=== PATIENT | male | born 1945 | race Caucasian/White ===

== ENCOUNTER 2020-04-12 19:01 | Inpatient (IN) | payer MEDICARE, OTHER ==
[~2020-04-12] VITALS: Ht 170.2 cm; Wt 78.7 kg
[2020-04-12 19:34] LABS: Basophils # (auto) 0 10 ^3/uL (0-0.2); Basophils % (auto) 0.5 % (0.0-2.0); Eosinophils # (auto) 0.1 10 ^3/uL (0-0.8); Eosinophils % (auto) 1.7 % (0.0-7.0); Hematocrit 43.7 % (41.0-53.0); Hemoglobin 15.1 g/dL (13.5-17.5); Lymphocytes % (auto) 29.4 % (10.0-50.0); Mean Corpuscular Hemoglobin 31.2 pg (28.0-32.0); Mean Corpuscular Hgb Conc. 34.5 g/dL (32.0-36.0); Mean Corpuscular Volume 90.3 fL (80.0-100.0); Monocytes # (auto) 0.9 10 ^3/uL (0-1.3); Monocytes % (auto) 12.6 % (0.0-12.0); Neutrophils # (auto) 3.8 10 ^3/uL (1.6-8.6); Neutrophils % (auto) 55.8 % (37.0-80.0); Nucleated Red Blood Cells % 0.1 %; Platelet Count (auto) 226 10^3/uL (140-450); Red Blood Cells 4.84 10^6/uL (4.5-5.90); Red Cell Distribution Width 14.2 % (11.8-14.3); White Blood Cell 6.9 10^3/uL (4.4-10.8)
[2020-04-12 19:48] LABS: Alanine Aminotransferase 33 U/L (16-61); Albumin 3.4 g/dL (3.4-5.0); Anion Gap 6 (5-15); Blood Urea Nitrogen 17 mg/dL (7-18); Calcium 8.8 mg/dL (8.5-10.1); Carbon Dioxide 26 mmol/L (21-32); Chloride 108 mmol/L (98-107); Glucose 108 mg/dL (74-106); Potassium 3.9 mmol/L (3.5-5.1); Sodium 140 mmol/L (136-145)
[2020-04-12 19:52] LABS: Alkaline Phosphatase 79 U/L (45-117); Aspartate Aminotransferase 19 U/L (15-37); BUN/Creatinine Ratio 16.5; Bilirubin, Total 0.4 mg/dL (0.2-1.0); GFR African American 91 mL/min; GFR Non-African American 75 mL/min; Total Protein 8.1 g/dL (6.4-8.2)
[2020-04-12 19:55] LABS: INR 1.02 (0.9-1.15); Partial Thromboplastin Time 29.1 sec (23.0-31.2)
[2020-04-13] MEDS ORDERED: NITROGLYCERIN 0.4 MG SL TAB SL PRN (00:15)
[2020-04-13] MEDS ORDERED: MORPHINE SULF INJ 2 MG/ML SYRINGE 1ML IV PRN (00:15)
[2020-04-13] MEDS ORDERED: TEMAZEPAM 15 MG CAP PO PRN (00:15)
[2020-04-13] MEDS ORDERED: ACETAMINOPHEN 325 MG TAB PO PRN (00:15)
[2020-04-13] MEDS ORDERED: ONDANSETRON HCL 4 MG/2 ML VIAL IV PRN (00:15)
[2020-04-13] MEDS ORDERED: LORazepam 2MG/ML-1ML VIAL IV PRN (09:15)
[2020-04-13] MEDS ORDERED: ASPirin 81 mg TAB PO SCH (10:00)
[2020-04-13] MEDS: ASPirin 81 mg TAB PO SCH ×2 (10:00→10:25)
[2020-04-13] MEDS: LISINOPRIL 10 MG TAB PO SCH ×2 (10:00→11:10)
[2020-04-13 10:08] LABS: Cholesterol 144 mg/dL (< 200)
[2020-04-13 10:10] LABS: HDL Cholesterol 31 mg/dL (40-59); LDL Cholesterol 99 mg/dL (< 100); Triglycerides 129 mg/dL (< 150)
[2020-04-13] MEDS: ATORVASTATIN 20 MG TAB PO SCH ×2 (10:25→22:12)
[2020-04-13] MEDS: ENOXAPARIN SOD 40 MG/0.4 ML SYRINGE SC SCH (10:26)
[2020-04-13] MEDS: CLOPIDOGREL BISULFATE 75 MG TAB PO SCH (10:26)
[2020-04-13] MEDS: FAMOTIDINE 20 MG TAB PO SCH ×2 (10:26→22:13)
[2020-04-13 22:00] VITALS: BP 124/80
[2020-04-13] MEDS ORDERED: ATORVASTATIN 20 MG TAB PO SCH (22:00)
[2020-04-14] MEDS ORDERED: BENA10TA9 PO (02:50)
[2020-04-14] MEDS ORDERED: ASPI-543 PO (02:50)
[2020-04-14 05:00] VITALS: BP 141/91
[2020-04-14 06:01] LABS: Basophils # (auto) 0 10 ^3/uL (0-0.2); Basophils % (auto) 0.1 % (0.0-2.0); Eosinophils # (auto) 0.1 10 ^3/uL (0-0.8); Eosinophils % (auto) 1.8 % (0.0-7.0); Hematocrit 40.9 % (41.0-53.0); Hemoglobin 14.2 g/dL (13.5-17.5); Lymphocytes # (auto) 2.1 10 ^3/uL (0.4-5.4); Lymphocytes % (auto) 29.7 % (10.0-50.0); Mean Corpuscular Hemoglobin 31.6 pg (28.0-32.0); Mean Corpuscular Hgb Conc. 34.8 g/dL (32.0-36.0); Mean Corpuscular Volume 90.9 fL (80.0-100.0); Monocytes # (auto) 0.8 10 ^3/uL (0-1.3); Monocytes % (auto) 11.5 % (0.0-12.0); Neutrophils # (auto) 3.9 10 ^3/uL (1.6-8.6); Neutrophils % (auto) 56.9 % (37.0-80.0); Nucleated Red Blood Cells % 0.4 %; Platelet Count (auto) 223 10^3/uL (140-450); Red Cell Distribution Width 14.2 % (11.8-14.3); White Blood Cell 6.9 10^3/uL (4.4-10.8)
[2020-04-14 06:08] LABS: Calcium 8.3 mg/dL (8.5-10.1); Potassium 4.2 mmol/L (3.5-5.1)
[2020-04-14 06:10] LABS: BUN/Creatinine Ratio 18.8
[2020-04-14 08:00] VITALS: BP 124/68
[2020-04-14] MEDS: ASPirin 81 mg TAB PO SCH (09:30)
[2020-04-14] MEDS: FAMOTIDINE 20 MG TAB PO SCH (09:30)
[2020-04-14] MEDS: ENOXAPARIN SOD 40 MG/0.4 ML SYRINGE SC SCH (09:31)
[2020-04-14] MEDS: LISINOPRIL 10 MG TAB PO SCH (09:31)
[2020-04-14] MEDS: CLOPIDOGREL BISULFATE 75 MG TAB PO SCH (09:31)
[2020-04-14 15:08] VITALS: BP 127/70
== END 2020-04-14 16:20 | disposition home or self-care (01) | DRG 65 ==
LOC: ER 19:01 → TELE 19:02 → TELE-EAST 04-13 20:10 → DOU IN ADS 04-13 20:11
PROVIDERS: ADMIT Nurse Practitioner; ATTEND Internal Medicine
DX: I63.9 Cerebral infarction, unspecified (principal); G81.94 Hemiplegia, unspecified affecting left nondominant side; I10 Essential (primary) hypertension; F17.200 Nicotine dependence, unspecified, uncomplicated; Z20.822 Contact with and (suspected) exposure to COVID-19; R29.810 Facial weakness; R47.81 Slurred speech; Z79.82 Long term (current) use of aspirin; Z79.899 Other long term (current) drug therapy; Z86.73 Personal history of transient ischemic attack (TIA), and cerebral infarction without residual deficits; Z87.442 Personal history of urinary calculi; Z79.02 Long term (current) use of antithrombotics/antiplatelets; Z90.49 Acquired absence of other specified parts of digestive tract
CPT/HCPCS: 36415; 70450; 70551; 80048; 80053; 80061; 83735; 84484; 85025; 85610; 85730; 87426; 92610; 93005; 93306; 93886; G0378

== ENCOUNTER 2020-06-25 18:39 | Inpatient (IN) | payer OTHER, MEDICARE ==
[~2020-06-25] VITALS: Ht 170.2 cm; Wt 73.0 kg
[~2020-06-25 18:39] MED LIST: ASPI-543 PO; BENA10TA9 PO
[2020-06-25 20:42] LABS: Basophils # (auto) 0 10 ^3/uL (0-0.2); Basophils % (auto) 0.6 % (0.0-2.0); Eosinophils # (auto) 0 10 ^3/uL (0-0.8); Eosinophils % (auto) 0.7 % (0.0-7.0); Hematocrit 42.8 % (41.0-53.0); Hemoglobin 14.8 g/dL (13.5-17.5); Lymphocytes # (auto) 1.5 10 ^3/uL (0.4-5.4); Lymphocytes % (auto) 21.9 % (10.0-50.0); Mean Corpuscular Hemoglobin 31.4 pg (28.0-32.0); Mean Corpuscular Hgb Conc. 34.5 g/dL (32.0-36.0); Mean Corpuscular Volume 91.1 fL (80.0-100.0); Monocytes # (auto) 0.7 10 ^3/uL (0-1.3); Monocytes % (auto) 10.6 % (0.0-12.0); Neutrophils # (auto) 4.4 10 ^3/uL (1.6-8.6); Neutrophils % (auto) 66.2 % (37.0-80.0); Nucleated Red Blood Cells % 0.1 %; Platelet Count (auto) 175 10^3/uL (140-450); Red Cell Distribution Width 14.6 % (11.8-14.3); White Blood Cell 6.7 10^3/uL (4.4-10.8)
[2020-06-25 21:01] LABS: INR 1.04 (0.9-1.15); Potassium 3.9 mmol/L (3.5-5.1)
[2020-06-25 21:09] LABS: Albumin 3.3 g/dL (3.4-5.0); BUN/Creatinine Ratio 19.8; Bilirubin, Total 0.3 mg/dL (0.2-1.0); Calcium 8.6 mg/dL (8.5-10.1); Total Protein 7.3 g/dL (6.4-8.2)
[2020-06-25] MEDS ORDERED: ENOXAPARIN SOD 80 MG/0.8ML SYRINGE SC ONE (21:30)
[2020-06-25] MEDS ORDERED: HEPARIN DRIP/D5W 100UNITS/ML 250 ML IV SCH (22:00)
[2020-06-25] MEDS: SODIUM CHLOR 0.9% PF (SALINE LOCK) 10ML VIAL/SYR IV SCH (22:00)
[2020-06-25] MEDS ORDERED: HEPARIN SODIUM (PORCINE) 5000 UNITS/ML 1ML VIAL IV ONE (22:00)
[2020-06-25] MEDS ORDERED: NITROGLYCERIN 0.4 MG SL TAB SL PRN (22:15)
[2020-06-25] MEDS ORDERED: MORPHINE SULF INJ 2 MG/ML SYRINGE 1ML IV PRN (22:15)
[2020-06-25] MEDS ORDERED: NITROGLYCERIN 0.4MG/HR TOPICAL PATCH TD ONE (22:15)
[2020-06-25] MEDS ORDERED: ASPirin 81 mg TAB PO ONE (22:15)
[2020-06-25] MEDS: ATORVASTATIN 20 MG TAB PO SCH (22:40)
[2020-06-25 22:53] LABS: Magnesium 2.2 mg/dL (1.6-2.6)
[2020-06-26] VITALS (25 sets, daily range): BP systolic 92–118; BP diastolic 32–69
[2020-06-26] MEDS ORDERED: NITROGLYCERIN 50MG/250ML 250 ML IV SCH (02:15)
[2020-06-26] MEDS ORDERED: CHOL1CAP PO (04:31)
[2020-06-26] MEDS ORDERED: ACET1CAP14 PO (04:31)
[2020-06-26] MEDS ORDERED: BENA20TA14 PO (04:31)
[2020-06-26] MEDS: SODIUM CHLOR 0.9% PF (SALINE LOCK) 10ML VIAL/SYR IV SCH ×3 (06:00→21:23)
[2020-06-26 06:42] LABS: INR 1.09 (0.9-1.15); Partial Thromboplastin Time 53.5 sec (23.0-31.2)
[2020-06-26 07:21] LABS: Basophils # (auto) 0 10 ^3/uL (0-0.2); Basophils % (auto) 0.2 % (0.0-2.0); Eosinophils # (auto) 0.1 10 ^3/uL (0-0.8); Eosinophils % (auto) 1.1 % (0.0-7.0); Lymphocytes % (auto) 29.2 % (10.0-50.0); Mean Corpuscular Hemoglobin 31.2 pg (28.0-32.0); Mean Corpuscular Hgb Conc. 34.2 g/dL (32.0-36.0); Mean Corpuscular Volume 91.1 fL (80.0-100.0); Monocytes # (auto) 0.8 10 ^3/uL (0-1.3); Monocytes % (auto) 11.4 % (0.0-12.0); Neutrophils % (auto) 58.1 % (37.0-80.0); Nucleated Red Blood Cells % 0.1 %; Platelet Count (auto) 172 10^3/uL (140-450); Red Cell Distribution Width 14.2 % (11.8-14.3); White Blood Cell 6.9 10^3/uL (4.4-10.8)
[2020-06-26 07:29] LABS: Albumin 3.4 g/dL (3.4-5.0); Calcium 8.5 mg/dL (8.5-10.1); Potassium 4.4 mmol/L (3.5-5.1)
[2020-06-26] MEDS ORDERED: TICAGRELOR 90 MG TAB PO ONE (07:30)
[2020-06-26 07:32] LABS: Bilirubin, Total 0.6 mg/dL (0.2-1.0)
[2020-06-26] MEDS: FAMOTIDINE 20 MG TAB PO SCH (09:55)
[2020-06-26] MEDS: METOPROLOL TARTRATE 25 MG TAB PO SCH ×2 (09:56→21:24)
[2020-06-26] MEDS ORDERED: ASPirin 81 mg TAB PO SCH (10:00)
[2020-06-26] MEDS: TICAGRELOR 90 MG TAB PO SCH ×2 (10:00→21:36)
[2020-06-26 12:50] LABS: INR 1.1 (0.9-1.15); Partial Thromboplastin Time 54.7 sec (23.0-31.2)
[2020-06-26] MEDS ORDERED: IOHEXOL 350 MG/ML 100ML IJ ONE (14:52)
[2020-06-26] MEDS ORDERED: LIDOCAINE 2%HCL (LOCAL ANESTH.) INJ 20ML MDV ONE (15:09)
[2020-06-26] MEDS ORDERED: MIDAZOLAM HCL 1MG/1ML-2 ML VIAL ONE (15:19)
[2020-06-26] MEDS ORDERED: ANGIOMAX 250 MG VIAL IV ONE (15:19)
[2020-06-26] MEDS ORDERED: SODIUM CHL 0.9% 50 ML ONE (15:19)
[2020-06-26] MEDS ORDERED: fentaNYL CITRATE 100 MCG/2 ML VL ONE (15:19)
[2020-06-26] MEDS ORDERED: EPTIFIBATIDE INJ (2MG/ML) 10ML VIAL IV ONE (15:36)
[2020-06-26] MEDS ORDERED: HYDROcodone-ACET 5/325MG TAB PO PRN (16:30)
[2020-06-26] MEDS ORDERED: ACETAMINOPHEN 500 MG TAB PO PRN (16:30)
[2020-06-26] MEDS: ATORVASTATIN 20 MG TAB PO SCH (21:36)
[2020-06-27] VITALS (7 sets, daily range): BP systolic 96–120; BP diastolic 54–72
[2020-06-27] MEDS: SODIUM CHLOR 0.9% PF (SALINE LOCK) 10ML VIAL/SYR IV SCH (05:19)
[2020-06-27] MEDS: TICAGRELOR 90 MG TAB PO SCH (09:59)
[2020-06-27] MEDS: FAMOTIDINE 20 MG TAB PO SCH (09:59)
[2020-06-27] MEDS: METOPROLOL TARTRATE 25 MG TAB PO SCH (10:00)
[2020-06-27] MEDS ORDERED: ASPirin 81 mg TAB PO SCH (10:00)
[2020-06-27] MEDS ORDERED: METO25TA36 PO (10:14)
[2020-06-27] MEDS ORDERED: TICA90TA PO (10:14)
[2020-06-27] MEDS ORDERED: PANT40TA2 PO (10:14)
== END 2020-06-27 14:27 | disposition home or self-care (01) | DRG 246 ==
LOC: ER 18:39 → TELE 18:40 → DOU IN ICU 06-26 03:47
PROVIDERS: ADMIT Nurse Practitioner Acute Care; ATTEND Internal Medicine
PROC: 027034Z Dilation of Coronary Artery, One Artery with Drug-eluting Intraluminal Device, Percutaneous Approach (ICD-10-PCS; principal; 2020-06-26)
PROC: 4A023N7 Measurement of Cardiac Sampling and Pressure, Left Heart, Percutaneous Approach (ICD-10-PCS; 2020-06-26)
PROC: B2111ZZ Fluoroscopy of Multiple Coronary Arteries using Low Osmolar Contrast (ICD-10-PCS; 2020-06-26)
DX: I21.4 Non-ST elevation (NSTEMI) myocardial infarction (principal); I50.31 Acute diastolic (congestive) heart failure; E44.1 Mild protein-calorie malnutrition; E78.5 Hyperlipidemia, unspecified; I11.0 Hypertensive heart disease with heart failure; Z20.822 Contact with and (suspected) exposure to COVID-19; I25.2 Old myocardial infarction; Z82.49 Family history of ischemic heart disease and other diseases of the circulatory system; Z86.73 Personal history of transient ischemic attack (TIA), and cerebral infarction without residual deficits; Z87.442 Personal history of urinary calculi; Z86.16 Personal history of COVID-19; Z90.49 Acquired absence of other specified parts of digestive tract
CPT/HCPCS: 36415; 71045; 80053; 80061; 82962; 83735; 83880; 84484; 85025; 85379; 85610; 85730; 87081; 87426; 93005; 96365; 96375; 99291; G0378; J2250

== ENCOUNTER 2023-04-30 01:28 | Emergency (ER) | payer OTHER, MEDICARE ==
[~2023-04-30] VITALS: Ht 170.2 cm; Wt 71.4 kg
[~2023-04-30 01:28] MED LIST changes: +ACET1CAP14 PO; +BENA-36 PO; -BENA10TA9 PO; +CHOL1CAP PO; +METO25TA36 PO; +PANT40TA2 PO; +TICA90TA PO
[2023-04-30 03:37] VITALS: BP 159/97; PULSE 66; RESP 16; TEMP 97.4; O2SAT 100
[2023-04-30] MEDS: cefTRIAXone SOD 1,000 MG VL IM ONE (03:42)
[2023-04-30 04:37] LABS: Urine Bacteria NONE SEEN /hpf (None Seen); Urine Blood 2+ /uL (Negative); Urine Clarity Clear (Clear); Urine Color Colorless (Yellow); Urine Protein, UAD 1+ (Negative); Urine Specific Gravity 1.003 (1.001-1.035); Urine Urobilinogen Normal (Negative); Urine WBC 7 /hpf (0 - 3)
== END 2023-04-30 04:43 | disposition home or self-care (01) ==
LOC: ER 01:28
DX: R33.9 Retention of urine, unspecified (principal); N39.0 Urinary tract infection, site not specified; I10 Essential (primary) hypertension; Z86.73 Personal history of transient ischemic attack (TIA), and cerebral infarction without residual deficits; Z87.442 Personal history of urinary calculi; Z87.430 Personal history of prostatic dysplasia
CPT/HCPCS: 51702; 81001; 96372; 99284; J0696

== ENCOUNTER 2023-09-18 11:50 | Inpatient (IN) | payer MEDICARE, OTHER ==
[~2023-09-18] VITALS: Ht 170.2 cm; Wt 71.0 kg
[2023-09-18 12:15] LABS: Basophils # (auto) 0 10 ^3/uL (0-0.2); Basophils % (auto) 0.2 % (0.0-2.0); Eosinophils # (auto) 0 10 ^3/uL (0-0.8); Eosinophils % (auto) 0.3 % (0.0-7.0); Hematocrit 38.8 % (41.0-53.0); Hemoglobin 13.1 g/dL (13.5-17.5); Lymphocytes # (auto) 1.2 10 ^3/uL (0.4-5.4); Lymphocytes % (auto) 16.8 % (10.0-50.0); Mean Corpuscular Hemoglobin 30.8 pg (28.0-32.0); Mean Corpuscular Hgb Conc. 33.8 g/dL (32.0-36.0); Mean Corpuscular Volume 91.4 fL (80.0-100.0); Monocytes % (auto) 13.2 % (0.0-12.0); Neutrophils # (auto) 5.1 10 ^3/uL (1.6-8.6); Neutrophils % (auto) 69.5 % (37.0-80.0); Nucleated Red Blood Cells % 0.1 %; Red Blood Cells 4.25 10^6/uL (4.5-5.90); Red Cell Distribution Width 14.9 % (11.8-14.3); White Blood Cell 7.4 10^3/uL (4.4-10.8)
[2023-09-18] MEDS: ASPirin 325 MG TAB PO ONE (12:19)
[2023-09-18 12:36] LABS: Alanine Aminotransferase 21 U/L (7-40); Albumin 4.2 g/dL (3.2-4.8); Alkaline Phosphatase 65 U/L (46-116); Anion Gap 11 (5-15); Aspartate Aminotransferase 16 U/L (13-40); BUN/Creatinine Ratio 14.4 (10.0-20.0); Blood Urea Nitrogen 13 mg/dL (9-23); Calcium 9.3 mg/dL (8.7-10.4); Carbon Dioxide 24 mmol/L (20-30); Chloride 108 mmol/L (98-107); Glucose 113 mg/dL (74-106); Potassium 4.3 mmol/L (3.5-5.1); Sodium 143 mmol/L (136-145)
[2023-09-18 12:37] LABS: Total Protein 6.9 g/dL (5.7-8.2)
[2023-09-18 12:43] LABS: INR 1.17 (0.9-1.15); Prothrombin Time 12.3 sec (9.3-11.8)
[2023-09-18 12:54] LABS: Triglycerides 66 mg/dL (< 150)
[2023-09-18 12:55] LABS: LDL Cholesterol 30 mg/dL (< 100)
[2023-09-18 12:56] LABS: Cholesterol 81 mg/dL (< 200); HDL Cholesterol 37 mg/dL (40-59)
[2023-09-18] MEDS ORDERED: NITROGLYCERIN 0.4 MG SL TAB SL PRN (15:45)
[2023-09-18] MEDS ORDERED: ACETAMINOPHEN 325 MG TAB PO PRN (15:45)
[2023-09-18] MEDS ORDERED: MORPHINE SULFATE INJ 2 MG/ml SYRG IV PRN (15:45)
[2023-09-18] MEDS ORDERED: DOCUSATE SOD 100 MG CAP PO PRN (15:45)
[2023-09-18] MEDS ORDERED: ONDANSETRON HCL 4 MG/2 ML VIAL IV PRN (15:45)
[2023-09-18] MEDS ORDERED: HYDROcodone-ACET 5/325MG TAB PO PRN (15:45)
[2023-09-18 16:33] VITALS: PULSE 55; RESP 14; O2SAT 99
[2023-09-18 18:59] LABS: Urine Bacteria MANY /hpf (None Seen); Urine Blood 3+ /uL (Negative); Urine Clarity Turbid (Clear); Urine Color Light-Orange (Yellow); Urine Mucus FEW (None Seen); Urine Protein, UAD 1+ (Negative); Urine Specific Gravity 1.022 (1.001-1.035); Urine Urobilinogen Normal (Negative); Urine WBC 223 /hpf (0 - 3); Urine pH 5.5 (5.0-9.0)
[2023-09-18 19:02] LABS: Amphetamine Screen, Urine Neg (NEGATIVE)
[2023-09-18 19:03] LABS: Barbiturate Scree,Urine Neg (NEGATIVE); Benzodiazephine Screen, Urine Neg (NEGATIVE); Cannabinoid Screen, Urine Neg (NEGATIVE); Cocaine Screen, Urine Neg (NEGATIVE); Opiate Scree,Urine Neg (NEGATIVE); Phencyclidine Screen, Urine Neg (NEGATIVE)
[2023-09-18 19:33] VITALS: BP 145/59; PULSE 68; RESP 18; TEMP 99; O2SAT 99
[2023-09-18 20:00] VITALS: PULSE 64; PULSE 68; RESP 18; O2SAT 99
[2023-09-18 21:00] VITALS: BP 147/63; PULSE 57; RESP 18; TEMP 99.5; O2SAT 99
[2023-09-18 21:42] VITALS: PULSE 64
[2023-09-18] MEDS: ATORVASTATIN 20 MG TAB PO SCH (21:44)
[2023-09-18] MEDS: SODIUM CHLOR 0.9% PF (SALINE LOCK) 10ML VIAL/SYR IV SCH (21:45)
[2023-09-18] MEDS ORDERED: TICAGRELOR 90 MG TAB PO SCH (22:00)
[2023-09-18] MEDS ORDERED: ATOR-507 PO (22:38)
[2023-09-18] MEDS ORDERED: SILD100T PO (22:47)
[2023-09-18] MEDS ORDERED: TAMS0.4C36 PO (22:47)
[2023-09-19] VITALS (19 sets, daily range): BP systolic 100–144; BP diastolic 52–69; PULSE 46–80; RESP 12–19; TEMP 97.4–100.3; O2SAT 93–100
[2023-09-19 06:14] LABS: Basophils # (auto) 0 10 ^3/uL (0-0.2); Basophils % (auto) 0.2 % (0.0-2.0); Eosinophils # (auto) 0 10 ^3/uL (0-0.8); Eosinophils % (auto) 0.2 % (0.0-7.0); Hematocrit 35.6 % (41.0-53.0); Hemoglobin 12.4 g/dL (13.5-17.5); Lymphocytes # (auto) 1.4 10 ^3/uL (0.4-5.4); Lymphocytes % (auto) 23.3 % (10.0-50.0); Mean Corpuscular Hemoglobin 31.9 pg (28.0-32.0); Mean Corpuscular Volume 91.2 fL (80.0-100.0); Monocytes % (auto) 16.3 % (0.0-12.0); Neutrophils # (auto) 3.6 10 ^3/uL (1.6-8.6); Red Cell Distribution Width 14.9 % (11.8-14.3)
[2023-09-19 06:19] LABS: Anion Gap 8 (5-15); Carbon Dioxide 24 mmol/L (20-30); Chloride 107 mmol/L (98-107); Potassium 4.2 mmol/L (3.5-5.1); Sodium 139 mmol/L (136-145)
[2023-09-19 06:21] LABS: Calcium 9.1 mg/dL (8.7-10.4)
[2023-09-19 06:25] LABS: Glucose 98 mg/dL (74-106)
[2023-09-19 06:26] LABS: BUN/Creatinine Ratio 20.7 (10.0-20.0); Blood Urea Nitrogen 18 mg/dL (9-23); Magnesium 1.6 mg/dL (1.6-2.6)
[2023-09-19 09:15] LABS: Free T3 2.52 pg/mL (2.3-4.2); Free T4 (Free Thyroxine) 0.96 ng/dL (0.89-1.76)
[2023-09-19] MEDS: HEPARIN SODIUM (PORCINE) 5000 UNITS/ML 1ML VIAL ONE (09:57)
[2023-09-19] MEDS: IODIXANOL 320MG/ML 100ML BTL IV ONE (09:58)
[2023-09-19] MEDS: MIDAZOLAM HCL 2MG/2ML 2ml VIAL (1mg/ml) ONE (09:58)
[2023-09-19] MEDS: fentaNYL CITRATE 100 MCG/2 ML VL ONE (09:58)
[2023-09-19] MEDS: VERAPAMIL 2.5MG/ML INJ 2ML VIAL IV ONE (09:58)
[2023-09-19] MEDS: LIDOCAINE 2%HCL (LOCAL ANESTH.) INJ 20ML MDV ONE (09:59)
[2023-09-19] MEDS: METOPROLOL SUCCINATE XL 50 MG TAB PO SCH (10:00)
[2023-09-19] MEDS ORDERED: ASPirin-EC 81 mg tab PO SCH (10:00)
[2023-09-19] MEDS: ENOXAPARIN SOD 40 MG/0.4 ML SYRINGE SC SCH (10:00)
[2023-09-19] MEDS: CLOPIDOGREL BISULFATE 75 MG TAB PO SCH (10:00)
[2023-09-19] MEDS: SODIUM CHL 0.9% 0 ML ONE (10:01)
[2023-09-19] MEDS: ANGIOMAX 250 MG VIAL IV ONE (10:01)
[2023-09-19] MEDS: CHOLECALCIFEROL (VITD3) 1,000UNIT=25mCg TAB PO SCH (13:32)
[2023-09-19] MEDS: BENAZEPRIL HCL 10 MG TAB PO SCH (13:33)
[2023-09-19] MEDS: PANTOPRAZOLE 40 MG TAB PO SCH (13:34)
[2023-09-19] MEDS: ASPirin 81 mg TAB PO ONE (14:23)
[2023-09-19] MEDS: cefTRIAXone 1GM/50ML D5W 50 ML IV ONE (14:23)
[2023-09-19] MEDS: CYANOCOBALAMIN 500 MCG TAB PO ONE (17:17)
[2023-09-19] MEDS: ERGOCALCIFEROL 50,000 UNIT(1.25MG) CAP PO SCH (17:17)
[2023-09-19] MEDS: ATORVASTATIN 20 MG TAB PO SCH (21:57)
[2023-09-20] VITALS (7 sets, daily range): BP systolic 113–127; BP diastolic 53–62; PULSE 51–81; RESP 16–20; TEMP 36.7; O2SAT 96–100
[2023-09-20 06:18] LABS: Hematocrit 36.9 % (41.0-53.0); Hemoglobin 12.8 g/dL (13.5-17.5); Mean Corpuscular Hemoglobin 31.6 pg (28.0-32.0); Mean Corpuscular Hgb Conc. 34.7 g/dL (32.0-36.0); Red Blood Cells 4.05 10^6/uL (4.5-5.90); Red Cell Distribution Width 14.7 % (11.8-14.3); White Blood Cell 6.1 10^3/uL (4.4-10.8)
[2023-09-20 06:28] LABS: Basophils % (manual) 0 (0.0-2.0); Blast Cells 0; Metamyelocytes % 0; Myelocytes % 0; Promyelocytes % 0; Reactive Lymphocytes 0
[2023-09-20 08:37] LABS: Band Neutrophils % (manual) 12; Eosinophils % (manual) 2 (0-7)
[2023-09-20 08:38] LABS: Lymphocytes % (manual) 27 (10.0-50.0); Monocytes % (manual) 20 (0-12)
[2023-09-20 08:39] LABS: Anisocytosis Slight; Platelet Estimate Decreased
[2023-09-20 08:40] LABS: Tear Drop Cells FEW
[2023-09-20] MEDS: ASPirin 81 mg TAB PO SCH (08:50)
[2023-09-20] MEDS: CYANOCOBALAMIN 500 MCG TAB PO SCH (08:51)
[2023-09-20] MEDS: cefTRIAXone 1GM/50ML D5W 50 ML IV SCH (08:52)
[2023-09-20] MEDS ORDERED: CLOP75TA70 PO (10:39)
[2023-09-20] MEDS ORDERED: CYAN500T3 PO (10:39)
[2023-09-20] MEDS ORDERED: CEPH250C PO (10:39)
[2023-09-24] MEDS ORDERED: CYAN100060 PO (14:30)
[2023-09-24] MEDS ORDERED: TAMS0.4C36 PO (14:30)
[2023-09-24] MEDS ORDERED: ASPI-378 OR (14:30)
[2023-09-24] MEDS ORDERED: METO25TA93 PO (14:30)
[2023-09-24] MEDS ORDERED: BENA-36 PO (14:30)
[2023-09-24] MEDS ORDERED: PANT40T PO (14:30)
[2023-09-24] MEDS ORDERED: CHOL200039 OR (14:30)
[2023-09-24] MEDS ORDERED: CEPH250C2 PO (14:30)
[2023-09-24] MEDS ORDERED: SILD100T PO (14:30)
[2023-09-24] MEDS ORDERED: ATOR40TA52 PO (14:30)
== END 2023-09-20 17:04 | disposition home or self-care (01) | DRG 286 ==
LOC: ER 11:50 → TELE 15:37 → TELE-WESTW 18:41
PROVIDERS: ADMIT Internal Medicine; ATTEND Emergency Medicine
PROC: 4A023N7 Measurement of Cardiac Sampling and Pressure, Left Heart, Percutaneous Approach (ICD-10-PCS; principal; 2023-09-19)
PROC: B211YZZ Fluoroscopy of Multiple Coronary Arteries using Other Contrast (ICD-10-PCS; 2023-09-19)
PROC: B215YZZ Fluoroscopy of Left Heart using Other Contrast (ICD-10-PCS; 2023-09-19)
DX: I20.81 Angina pectoris with coronary microvascular dysfunction (principal); I50.33 Acute on chronic diastolic (congestive) heart failure; N39.0 Urinary tract infection, site not specified; E11.9 Type 2 diabetes mellitus without complications; E78.5 Hyperlipidemia, unspecified; E05.80 Other thyrotoxicosis without thyrotoxic crisis or storm; I49.3 Ventricular premature depolarization; I11.0 Hypertensive heart disease with heart failure; N40.0 Benign prostatic hyperplasia without lower urinary tract symptoms; Z98.61 Coronary angioplasty status; Z86.73 Personal history of transient ischemic attack (TIA), and cerebral infarction without residual deficits; I25.2 Old myocardial infarction; Z79.1 Long term (current) use of non-steroidal anti-inflammatories (NSAID); Z79.899 Other long term (current) drug therapy; Z87.442 Personal history of urinary calculi; Z79.02 Long term (current) use of antithrombotics/antiplatelets; Z82.49 Family history of ischemic heart disease and other diseases of the circulatory system
CPT/HCPCS: 36415; 71045; 80048; 80053; 80061; 80307; 81001; 82306; 82607; 83036; 83605; 83735; 83880; 84154; 84439; 84443; 84481; 84484; 85007; 85025; 85027; 85610; 87086; 87088; 87186; 93005; 93306; 93458; 99152; G0378; J2250; Q9967